=== PATIENT | female | born 1980 | race Caucasian/White ===

== ENCOUNTER 2021-04-04 10:13 | Emergency (ER) | payer MEDICARE, OTHER ==
[~2021-04-04] VITALS: Ht 177.8 cm; Wt 136.1 kg
[2021-04-04 10:57] LABS: Source, Urine Clean Catch
[2021-04-04 11:00] LABS: BASOPHILS ABSOLUTE AUTO 0.03 K/mm3 (0.00-0.23); BASOPHILS PERCENT AUTO 0 % (0-2); EOSINOPHILS ABSOLUTE AUTO 0.05 K/mm3 (0.00-0.68); EOSINOPHILS PERCENT AUTO 0 % (0-6); Hematocrit 44.2 % (33.0-51.0); Hemoglobin 14.6 g/dL (11.5-16.0); IMMATURE GRAN ABSOLUTE AUTO 0.06 K/mm3 (0.00-0.10); IMMATURE GRAN PERCENT AUTO 0 % (0-1); LYMPHOCYTES ABSOLUTE AUTO 1.73 K/mm3 (0.84-5.20); LYMPHOCYTES PERCENT AUTO 13 % (21-46); MONOCYTES ABSOLUTE AUTO 0.51 K/mm3 (0.16-1.47); MONOCYTES PERCENT AUTO 4 % (4-13); Mean Corpuscular HGB 27.3 pg (26.0-34.0); Mean Corpuscular Volume 83 fL (80-100); Mean Platelet Volume 9.6 fL (9.1-12.4); NEUTROPHILS ABSOLUTE AUTO 11.41 K/mm3 (1.96-9.15); NEUTROPHILS PERCENT AUTO 83 % (41-73); Platelet Count 386 K/mm3 (150-400); RDW Coefficient Variation 13.1 % (11.7-14.2); RDW Standard Deviation 39.3 fL (35.1-46.3); Red Blood Cell Count 5.34 M/mm3 (3.80-5.20); White Blood Cell Count 13.79 K/mm3 (4.00-11.30)
[2021-04-04 11:10] LABS: Appearance, Urine Clear (Clear); Bilirubin, Urine Neg (Neg); Blood, Urine 4+ (Neg); Color, Urine Yellow (P-Yellow); Glucose Qualitative, Urine Neg (Neg); Ketones, Urine Neg (Neg); Leukocyte Esterase, Urine 1+ (Neg); Nitrite, Urine Neg (Neg); Protein, Urine 2+ (Neg); Specific Gravity, Urine 1.015 (1.003-1.022); Urobilinogen, Urine NORM (Normal)
[2021-04-04 11:17] LABS: Alanine Aminotransfer (ALT/SGP 17 U/L (12-78); Albumin, Blood 3.3 g/dL (3.4-5.0); Albumin/Globulin Ratio 0.8 (0.8-1.8); Alk Phos 79 U/L (50-136); Anion Gap 5 mmol/L (6-16); Aspartate Aminotrans (AST/SGOT 11 U/L (12-37); Bilirubin, Total 0.3 mg/dL (0.1-1.0); Blood Urea Nitrogen 9 mg/dL (8-24); Bun/Creatinine Ratio 11.6 (12.0-20.0); CO2, Blood 28 mmol/L (21-32); Calcium, Blood 9.2 mg/dL (8.5-10.1); Chloride, Blood 107 mmol/L (98-108); Creatinine, Blood 0.77 mg/dL (0.40-1.00); Globulin, Blood 4.3 g/dL (2.2-4.0); Glomerular Filtration Rate >60 (60-); Glucose, Blood 109 mg/dL (70-99); Potassium, Blood 3.9 mmol/L (3.5-5.5); Sodium, Blood 140 mmol/L (136-145); Total Protein, Blood 7.6 g/dL (6.4-8.2)
[2021-04-04 11:44] LABS: Red Blood Cells, Urine 0-2 /hpf (0-2)
[2021-04-04 11:45] LABS: Amorphous Light (0-Heavy); Bacteria Few /hpf; Mucus Light (0-Heavy); Squamous Epithelial Cells Mod /hpf (Few)
[2021-04-04 11:55] LABS: Lithium <0.20 mmol/L (0.60-1.20)
[2021-04-04] MEDS ORDERED: CIPR500 PO (12:11)
[2021-04-04] MEDS ORDERED: ONDA4 PO (12:11)
[2021-04-04] MEDS ORDERED: METR500 PO (12:11)
[2021-04-04 12:23] LABS: Influenza A, PCR NEGATIVE (NEGATIVE); Influenza B, PCR NEGATIVE (NEGATIVE); Resp Syncytial Virus, PCR NEGATIVE (NEGATIVE); SARS-Cov-2 (COVID-19) PCR, MMC NEGATIVE (NEGATIVE)
== END 2021-04-04 12:55 | disposition home or self-care (01) ==
LOC: ER 10:13
PROVIDERS: Emergency Medicine
DX: K52.9 Noninfective gastroenteritis and colitis, unspecified (principal); Z20.822 Contact with and (suspected) exposure to COVID-19; Z88.0 Allergy status to penicillin
CPT/HCPCS: 0241U; 36415; 74177; 80053; 80178; 81001; 81025; 83690; 85025; 87086; 96374; 99284-25; A9270; J2405; J7030; Q9967

== ENCOUNTER → 2021-04-20 | Outpatient (CLI) | payer MEDICARE, OTHER ==
[~2021-04-20] MED LIST: CIPR500 PO; METR500 PO; ONDA4 PO
== END | disposition home or self-care (01) ==
LOC: LAB SHORT 08:17
DX: E28.2 Polycystic ovarian syndrome (principal)
CPT/HCPCS: 88305

== ENCOUNTER 2021-06-27 08:24 | Day surgery (SDC) | payer MEDICARE, OTHER ==
[~2021-06-27] VITALS: Ht 177.8 cm; Wt 130.1 kg
[~2021-06-27 08:24] MED LIST changes: +BUSP10 PO; +LATUDA80 M2 PO; +LITH300ER PO; +TRAZ100 PO
--- NOTE | 2021-06-27 09:01 | NUR ---
PT ADMITTED TO [facility]. AGREES WITH PLANNED SURGERY. PT STATES UNABLE TO VOID. UNABLE TO DO URINE HCG, LAB DRAW DONE. LUNG SOUNDS CLEAR.
--- NOTE | 2021-06-27 09:25 | NUR ---
PT ABLE TO VOID AND ABLE TO DO URINE HCG.
--- NOTE | 2021-06-27 10:34 | NUR ---
06/27/21 1034 Mary Wolf PLACED INTRAOPERATIVELY BY DR.MARY HOOD.
--- NOTE | 2021-06-27 17:08 | NUR ---
PT ARRIVED TO THE UNIT AT APPROXIMATELY 1300. PT ALERT AND ORIENTED AT TIME OF ARRIVAL TO THE UNIT. SHE DENIED PAIN. PT'S MOTHER AT HER BEDSIDE FOR SUPPORT.
--- NOTE | 2021-06-27 18:43 | NUR ---
SHIFT SUMMARY PT IS POD#0 FROM [facility] WITH DR. HOOD. SHE HAS AMBULATED IN THE [place] AND IS TOLERATING PO. REYNA CATH DRAINING CLEAR YELLOW URINE. PAIN MANAGED WITH PO PAIN MEDICATION. WILL MONITOR UNTIL REPORT TO ANSHUL VARGHESE.
[2021-06-28] MEDS ORDERED: IBUP800 PO (07:12)
[2021-06-28] MEDS ORDERED: ESTRADIOL TD (07:14)
[2021-06-28] MEDS ORDERED: Norco 5-325 Ta1 EACH PO (07:16)
[2021-06-28] MEDS ORDERED: DOCU100 PO (07:22)
--- NOTE | 2021-06-28 10:06 | NUR ---
DISCHARGE PT PROVIDED WITH WRITTEN AND VERBAL DISCHARGE INSTRUCTIONS, SHE AND HER PARENTS REPORTED UNDERSTANDING. PT MET ALL GOALS PRIOR TO DISCHARGE, SHE IS ABLE TO TOLERATE PO, PAIN MANAGED WITH PO PAIN MEDICATION, SHE WAS ABLE TO AMBULATE AND ABLE TO VOID PRIOR TO DISCHARGE. DRESSINGS C/D/I. PT ESCORTED OUT IN W/C BY BRENDA KAYE.
== END 2021-06-28 09:50 | disposition home or self-care (01) ==
LOC: ORSCMMR 08:24 → SURS 12:49 → ORSCMMR 06-28 09:50
PROVIDERS: Obstetrics & Gynecology
PROC: 0UT7FZZ Resection of Bilateral Fallopian Tubes, Via Natural or Artificial Opening With Percutaneous Endoscopic Assistance (ICD-10-PCS; principal; 2021-06-27 10:00)
PROC: 0UT9FZZ Resection of Uterus, Via Natural or Artificial Opening With Percutaneous Endoscopic Assistance (ICD-10-PCS; principal; 2021-06-27 10:00)
PROC: 0UT2FZZ Resection of Bilateral Ovaries, Via Natural or Artificial Opening With Percutaneous Endoscopic Assistance (ICD-10-PCS; principal; 2021-06-27 10:00)
DX: N93.9 Abnormal uterine and vaginal bleeding, unspecified (principal); E28.2 Polycystic ovarian syndrome; N80.0 Endometriosis of uterus; Z91.89 Other specified personal risk factors, not elsewhere classified; R10.2 Pelvic and perineal pain; N72 Inflammatory disease of cervix uteri; Z87.891 Personal history of nicotine dependence; F25.9 Schizoaffective disorder, unspecified; Z79.899 Other long term (current) drug therapy; E66.01 Morbid (severe) obesity due to excess calories; Z68.41 Body mass index [BMI] 40.0-44.9, adult
CPT/HCPCS: 88307; A9270; J0171; J0690; J1100; J1885; J2250; J2405; J2550; J2704; J2765; J3010; J7120

== ENCOUNTER 2021-07-28 18:58 | Emergency (ER) | payer MEDICARE, OTHER ==
[~2021-07-28] VITALS: Ht 177.8 cm; Wt 126.5 kg
[~2021-07-28 18:58] MED LIST changes: +DOCU100 PO; +ESTRADIOL TD; +IBUP800 PO; +Norco 5-325 Ta1 EACH PO
== END 2021-07-28 19:55 | disposition home or self-care (01) ==
LOC: ER 18:58
DX: H93.12 Tinnitus, left ear (principal); Z88.0 Allergy status to penicillin; Z79.899 Other long term (current) drug therapy; F43.10 Post-traumatic stress disorder, unspecified
CPT/HCPCS: 99283

== ENCOUNTER 2021-11-03 15:15 | Observation (INO) | payer MEDICARE, OTHER ==
[~2021-11-03] VITALS: Ht 180.3 cm; Wt 129.3 kg
[2021-11-03 16:09] LABS: BASOPHILS ABSOLUTE AUTO 0.06 K/mm3 (0.00-0.23); BASOPHILS PERCENT AUTO 1 % (0-2); EOSINOPHILS ABSOLUTE AUTO 0.39 K/mm3 (0.00-0.68); EOSINOPHILS PERCENT AUTO 4 % (0-6); Hemoglobin 14.7 g/dL (11.5-16.0); IMMATURE GRAN ABSOLUTE AUTO 0.02 K/mm3 (0.00-0.10); IMMATURE GRAN PERCENT AUTO 0 % (0-1); LYMPHOCYTES ABSOLUTE AUTO 3.03 K/mm3 (0.84-5.20); LYMPHOCYTES PERCENT AUTO 31 % (21-46); MONOCYTES ABSOLUTE AUTO 0.66 K/mm3 (0.16-1.47); MONOCYTES PERCENT AUTO 7 % (4-13); Mean Corpuscular HGB 28.1 pg (26.0-34.0); Mean Corpuscular HGB Conc 33.4 g/dL (31.5-36.5); Mean Corpuscular Volume 84 fL (80-100); Mean Platelet Volume 9.3 fL (9.1-12.4); NEUTROPHILS ABSOLUTE AUTO 5.72 K/mm3 (1.96-9.15); NEUTROPHILS PERCENT AUTO 58 % (41-73); Platelet Count 337 K/mm3 (150-400); RDW Coefficient Variation 13.1 % (11.7-14.2); RDW Standard Deviation 40.8 fL (35.1-46.3); Red Blood Cell Count 5.24 M/mm3 (3.80-5.20); White Blood Cell Count 9.88 K/mm3 (4.00-11.30)
[2021-11-03 16:20] LABS: Source, Urine Clean Catch
[2021-11-03 16:26] LABS: Appearance, Urine Clear (Clear); Bilirubin, Urine Neg (Neg); Blood, Urine Neg (Neg); Color, Urine Yellow (P-Yellow); Glucose Qualitative, Urine Neg (Neg); Ketones, Urine Neg (Neg); Leukocyte Esterase, Urine 2+ (Neg); Nitrite, Urine Neg (Neg); Protein, Urine Neg (Neg); Specific Gravity, Urine 1.015 (1.003-1.022); Urobilinogen, Urine NORM (Normal); pH, Urine 6.5 (5.0-8.0)
[2021-11-03 16:27] LABS: Acetaminophen, Random <2.0 ug/mL (10.0-30.0); Alanine Aminotransfer (ALT/SGP 23 U/L (12-78); Albumin, Blood 3.9 g/dL (3.4-5.0); Albumin/Globulin Ratio 1.1 (0.8-1.8); Alk Phos 103 U/L (50-136); Anion Gap 5 mmol/L (6-16); Aspartate Aminotrans (AST/SGOT 16 U/L (12-37); Bilirubin, Total 0.3 mg/dL (0.1-1.0); Blood Urea Nitrogen 6 mg/dL (8-24); CO2, Blood 27 mmol/L (21-32); Calcium, Blood 9.5 mg/dL (8.5-10.1); Chloride, Blood 108 mmol/L (98-108); Creatinine, Blood 0.75 mg/dL (0.40-1.00); Ethanol (Alcohol), Blood, Med <3 mg/dL; Globulin, Blood 3.7 g/dL (2.2-4.0); Glomerular Filtration Rate 103 (60-); Glucose, Blood 151 mg/dL (70-99); Potassium, Blood 3.6 mmol/L (3.5-5.5); Salicylate 2.6 mg/dL (2.8-20.0); Sodium, Blood 140 mmol/L (136-145); Total Protein, Blood 7.6 g/dL (6.4-8.2)
[2021-11-03 16:31] LABS: Lithium 0.47 mmol/L (0.60-1.20)
[2021-11-03 16:39] LABS: Squamous Epithelial Cells Mod /hpf (Few)
[2021-11-03 16:40] LABS: Bacteria Many /hpf
[2021-11-03 16:42] LABS: U Amphetamine Screen Not Detected; U Barbituate Screen Not Detected; U Benzodiazapine Screen DETECTED; U Buprenorphine Screen Not Detected; U Cannabinoids Screen Not Detected; U Cocaine Screen Not Detected; U Methadone Screen Not Detected; U Methamphetamine Screen Not Detected; U Opiates Screen Not Detected; U Oxycodone Screen Not Detected; U Phencyclidine Screen Not Detected; U Propoxyphene Screen Not Detected
[2021-11-03] MEDS ORDERED: LITH300C PO (17:23)
[2021-11-03] MEDS ORDERED: LAMO100 PO (17:24)
[2021-11-03] MEDS ORDERED: LORA1 PO (17:25)
[2021-11-03] MEDS ORDERED: Vitamin D1000 UNI1 PO (17:25)
[2021-11-03] MEDS ORDERED: ZYRTEC10 M2 PO (17:25)
[2021-11-03 20:16] LABS: Influenza A, PCR NEGATIVE (NEGATIVE); Influenza B, PCR NEGATIVE (NEGATIVE); Resp Syncytial Virus, PCR NEGATIVE (NEGATIVE); SARS-Cov-2 (COVID-19) PCR, MMC NEGATIVE (NEGATIVE)
[2021-11-05 09:25] LABS: Lithium 0.52 mmol/L (0.60-1.20)
[2021-11-06] MEDS ORDERED: LITHIUM CARBON PO (10:26)
[2021-11-06] MEDS ORDERED: HYDPAM25 PO (10:26)
[2021-11-06] MEDS ORDERED: CEFD300 PO ×2 (10:31→10:32)
== END 2021-11-06 13:22 | disposition home or self-care (01) ==
LOC: ER 15:15 → EOR 21:58
PROVIDERS: Physician Assistant; Psychiatry & Neurology Psychiatry; Student in an Organized Health Care Education/Training Program; ADMIT Emergency Medicine
DX: F25.0 Schizoaffective disorder, bipolar type (principal); Z88.0 Allergy status to penicillin; Z79.899 Other long term (current) drug therapy; Z20.822 Contact with and (suspected) exposure to COVID-19
CPT/HCPCS: 0241U; 36415; 80053; 80178; 81001; 81025; 84436; 85025; 86592; 87086; 87147; 93005; 93010; 99285-25; A9270; G0378; G0480; Q3014

== ENCOUNTER 2022-10-17 23:49 | Emergency (ER) | payer MEDICARE, OTHER ==
[~2022-10-17] VITALS: Ht 175.3 cm; Wt 136.1 kg
[~2022-10-17 23:49] MED LIST changes: +BUSPIRONE HCL5 M6 PO; +CEFD300 PO; +HYDPAM25 PO; +LAMO100 PO; +LITH300C PO; +LITHIUM CARBON PO; +LORA1 PO; +Vitamin D1000 UNI1 PO; +ZYRTEC10 M2 PO
[2022-10-18] MEDS ORDERED: SULTRIDS PO (03:54)
[2022-10-18] MEDS ORDERED: CEPH500 PO (03:54)
[2022-10-18 05:10] VITALS: BP 128/84
== END 2022-10-18 04:16 | disposition home or self-care (01) ==
LOC: ER 23:49
DX: S90.822A Blister (nonthermal), left foot, initial encounter (principal); L97.529 Non-pressure chronic ulcer of other part of left foot with unspecified severity; X58.XXXA Exposure to other specified factors, initial encounter
CPT/HCPCS: 10060; 99282-25

== ENCOUNTER 2022-11-27 21:16 | Emergency (ER) | payer MEDICARE, OTHER ==
[~2022-11-27] VITALS: Ht 177.8 cm; Wt 140.6 kg
[~2022-11-27 21:16] MED LIST changes: +CEPH500 PO; +SULTRIDS PO
[2022-11-27 21:51] VITALS: BP 128/76
[2022-11-27] MEDS ORDERED: ESTRADIOL1 EAC2 TOP (23:25)
[2022-11-27] MEDS ORDERED: TRAZ100 PO (23:26)
[2022-11-27] MEDS ORDERED: CATAPRES0.1 MG PO (23:27)
[2022-11-27] MEDS ORDERED: QUET100 PO (23:27)
[2022-11-27] MEDS ORDERED: OLAN5 PO (23:28)
[2022-11-27] MEDS ORDERED: LORA10ER PO (23:28)
[2022-11-28] MEDS ORDERED: CEPH500 PO (00:12)
[2022-11-28] MEDS ORDERED: SULTRIDS PO (00:12)
== END 2022-11-28 00:20 | disposition home or self-care (01) ==
LOC: ER 21:16
DX: L03.115 Cellulitis of right lower limb (principal); L02.415 Cutaneous abscess of right lower limb
CPT/HCPCS: A9270

== ENCOUNTER 2023-05-21 18:30 | Emergency (ER) | payer MEDICARE, OTHER ==
[~2023-05-21] VITALS: Ht 177.8 cm; Wt 142.4 kg
[~2023-05-21 18:30] MED LIST changes: +CATAPRES0.1 MG PO; +ESTRADIOL1 EAC2 TOP; +LORA10ER PO; +OLAN5 PO; +QUET100 PO
[2023-05-21 18:41] VITALS: BP 134/96
== END 2023-05-21 20:37 | disposition home or self-care (01) ==
LOC: ER 18:30
DX: M79.672 Pain in left foot (principal); S01.511A Laceration without foreign body of lip, initial encounter; F31.9 Bipolar disorder, unspecified; F25.9 Schizoaffective disorder, unspecified; F43.10 Post-traumatic stress disorder, unspecified; E28.2 Polycystic ovarian syndrome; X58.XXXA Exposure to other specified factors, initial encounter; Z79.890 Hormone replacement therapy; Z79.899 Other long term (current) drug therapy
CPT/HCPCS: 99282

== ENCOUNTER 2024-04-15 16:06 | Emergency (ER) | payer MEDICARE, OTHER ==
[~2024-04-15] VITALS: Ht 175.3 cm; Wt 113.4 kg
[2024-04-15 16:43] VITALS: BP 160/90
[2024-04-15] MEDS ORDERED: TRAZ150T57 PO (17:01)
[2024-04-15] MEDS ORDERED: Seroquel Xr50 MG PO (17:01)
== END 2024-04-15 17:05 | disposition home or self-care (01) ==
LOC: ER 16:06
DX: G47.00 Insomnia, unspecified (principal); F43.10 Post-traumatic stress disorder, unspecified; Z79.899 Other long term (current) drug therapy
CPT/HCPCS: 99283

== ENCOUNTER → 2024-04-25 | Outpatient (CLI) | payer MEDICARE, OTHER ==
[~2024-04-25] MED LIST changes: +Seroquel Xr50 MG PO; +TRAZ150T57 PO
== END ==
LOC: LAB 13:21 → LAB SHORT 13:21
DX: R19.7 Diarrhea, unspecified (principal)
CPT/HCPCS: 87015; 87045; 87046; 87205; 87899